=== PATIENT | male | born 1975 | race African-American/Black ===

== ENCOUNTER 2017-04-01 21:10 | Emergency (ER) | payer SELFPAY ==
[~2017-04-01] VITALS: Ht 167.6 cm; Wt 59.0 kg
[2017-04-01 21:10] VITALS: BP 130/80
[2017-04-01] MEDS ORDERED: PERMETHRIN60 GM TOPIC (21:23)
[2017-04-01 21:37] VITALS: BP 130/80
--- NOTE | 2017-04-02 00:53 | Emergency Room Report ---
History of Present Illness General Chief Complaint: General Complaint Source: Patient Present Illness HPI 42YOM walk-in with "bugs all over" for "weeks." Homeless C/o itchy rash to abdomen and thighs Denies rash between finger folds, fever/chills, chest pain, SOB, abd pain, urinary complaints Allergies: Coded Allergies: No Known Allergies (Unverified , 04/01/17) Patient History Past Medical History: none Past Surgical History: none Pertinent Family History: none Social History: Denies: alcohol use, drug use, smoking Immunizations: UTD Reviewed Nursing Documentation: PMH: Agreed, PSxH: Agreed Nursing Documentation-PMH Past Medical History: No Stated History Review of Systems All Other Systems: negative except mentioned in HPI Physical Exam Vital Signs Date Time Temp Pulse Resp B/P Pulse Ox O2 Delivery O2 Flow Rate FiO2 04/01/17 20:59 98.1 82 16 130/80 98 Room Air Sp02 EP Interpretation: reviewed, normal General Appearance: normal inspection, well appearing, no apparent distress, alert Head: atraumatic ENT: normal ENT inspection, hearing grossly normal, normal voice Neck: normal inspection, full range of motion, supple, no bony tend Respiratory: normal inspection, lungs clear, normal breath sounds, no respiratory distress, no retraction, no wheezing Cardiovascular #1: regular rate, rhythm, no edema Gastrointestinal: normal inspection, normal bowel sounds, non tender, soft, no guarding, no hernia Genitourinary: no CVA tenderness Musculoskeletal: normal inspection, back normal, normal range of motion, Cristina' s Sign negative Neurologic: normal inspection, alert, oriented x3, responsive, 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 No vesclces, no blisters Lymphatic: normal inspection Medical Decision Making Diagnostic Impression: Primary Impression: Rash ER Course Rash, possibly scabies vs bed bugs VSS. Afebrile No blisters or vesicles Rx Elemit Given benadryl in ED Last Vital Signs Date Time Temp Pulse Resp B/P Pulse Ox O2 Delivery O2 Flow Rate FiO2 04/01/17 20:59 98.1 82 16 130/80 98 Room Air Status: improved Disposition: HOME, SELF-CARE Condition: Improved Scripts Permethrin* (ELIMITE*) 60 Gm Cream..g. 1 APPLIC TOPIC ONCE, #60 GM 0 Refills Apply cream from head to toe; leave on for 8-14 hours before washing off with water; may reapply in 1 week if live mites appear. Prov: AVANI FAROOQ M.D. 04/01/17 Referrals: NOT CHOSEN IPA/MD,REFERRING (PCP) Patient Instructions: Rash, [id number] Additional Instructions: - Apply elemite head to toe tonight then wash off in morning AVANI FAROOQ M.D. Apr 02, 2017 00:53
== END 2017-04-01 22:37 | disposition home or self-care (01) ==
LOC: EDBD 21:10 → EMR 21:39
DX: R21 Rash and other nonspecific skin eruption (principal)
CPT/HCPCS: 99283

== ENCOUNTER → 2017-07-28 | Emergency (ER) | payer SELFPAY ==
[~2017-07-28] MED LIST: PERMETHRIN60 GM TOPIC
== END | disposition left against medical advice (07) ==
LOC: EMR 17:07
DX: R46.89 Other symptoms and signs involving appearance and behavior (principal); Z53.21 Procedure and treatment not carried out due to patient leaving prior to being seen by health care provider